=== PATIENT | female | born 1950 | race Caucasian/White ===

== ENCOUNTER → 2018-03-17 10:30 | Outpatient (CLI) | payer MEDICARE, BC, SELFPAY ==
--- NOTE | 2018-03-17 | DI.MG.S_ITS ---
BILATERAL DIGITAL SCREENING MAMMOGRAM 3D/2D WITH CAD: 03/17/2018 CLINICAL: Routine screening. Family history of breast cancer. Comparison is made to exams dated: 02/10/2017 mammogram, 02/20/2015 mammogram, and 11/28/2013 mammogram - [facility]. The tissue of both breasts is extremely dense, which lowers the sensitivity of mammography. Current study was also evaluated with a Computer Aided Detection (CAD) system. There is an oval asymmetry in the left breast posterior depth inner region seen on the craniocaudal view only. No other significant masses, calcifications, or other findings are seen in either breast. IMPRESSION: INCOMPLETE: NEEDS ADDITIONAL IMAGING EVALUATION The oval asymmetry in the left breast is indeterminate. Additional views with possible ultrasound are recommended. This exam was interpreted at Station ID: [id number]. NOTE: For mammograms, a report in lay terms will be sent to the patient. Approximately 15% of breast malignancies will not be visualized mammographically. In the management of a palpable breast mass, a negative mammogram must not discourage biopsy of a clinically suspicious lesion. Electronically Signed By: Rickey hardy/alex:03/20/2018 02:07:06 letter sent: Additional Imaging Needed ACR BI-RADS Category 0: Incomplete 3340F
== END ==
PROVIDERS: PCP Specialist; Visit Provider Nurse Practitioner Family
DX: Z12.31 Encounter for screening mammogram for malignant neoplasm of breast (principal); Z80.3 Family history of malignant neoplasm of breast
CPT/HCPCS: 77063; 77067

== ENCOUNTER → 2018-04-11 10:03 | Outpatient (CLI) | payer MEDICARE, BC, SELFPAY ==
--- NOTE | 2018-04-11 | DI.MG.S_ITS ---
UNILATERAL LEFT DIGITAL DIAGNOSTIC MAMMOGRAM 3D/2D WITH ADDITIONAL VIEWS: 04/11/2018 CLINICAL: Additional evaluation requested from prior study. Comparison is made to exams dated: 03/17/2018 mammogram, 02/10/2017 mammogram, and 02/20/2015 mammogram - [facility]. The tissue of left breast is extremely dense, which lowers the sensitivity of mammography. Previously identified oval asymmetry in the left breast posterior depth inner region seen on the craniocaudal view only on comparison screening mammograms persists with additional views. No other significant masses, calcifications, or other findings are seen in the breast. IMPRESSION: INCOMPLETE: NEEDS ADDITIONAL IMAGING EVALUATION Previously identified oval asymmetry in the left breast posterior depth inner region seen on the craniocaudal view only on comparison screening mammograms persists with additional views. A targeted ultrasound is recommended for further evaluation, and will be performed immediately following this exam. This exam was interpreted at Station ID: [id number]. NOTE: For mammograms, a report in lay terms will be sent to the patient. Approximately 15% of breast malignancies will not be visualized mammographically. In the management of a palpable breast mass, a negative mammogram must not discourage biopsy of a clinically suspicious lesion. Electronically Signed By: Rickey Wolf M.D. ecl/:04/11/2018 11:36:28 letter sent: Additional Imaging Needed ACR BI-RADS Category 0: Incomplete 3340F
--- NOTE | 2018-04-11 | DI.US.S_ITS ---
LIMITED ULTRASOUND OF LEFT BREAST: 04/11/2018 CLINICAL: Patient returns for additional imaging over an asymmetry in the left breast. Comparison is made to exams dated: 04/11/2018 mammogram, 03/17/2018 mammogram, and 02/10/2017 mammogram - [facility]. Real-time and Doppler ultrasound of the left breast 9 o'clock region were performed. Garcia scale images of the real-time examination were reviewed. There is a 0.8 x 0.7 x 0.4 cm oval hypoehoic circumscribed mass in the left breast at 9 o'clock 8 cm from the nipple which demonstrates no vascularity on Doppler ultrasound. There is a possible fatty hilum posteriorly. This appears to correlate with the finding seen on mammography. IMPRESSION: PROBABLY BENIGN 0.8 cm mass in the left breast at 9 o'clock 8 cm from the nipple likely represents an intramammary lymph node or cluster of microcysts and is probably benign. A follow-up diagnostic mammogram and targeted ultrasound in 6 months is recommended to demonstrate stability. The patient is advised to monitor her breasts and to return sooner for re-evaluation should she feel anything grow or change. This exam was interpreted at Station ID: [id number]. Electronically Signed By: Rickey Wolf M.D. ecl/:04/11/2018 11:55:28 copy to: Bharat Wu letter sent: Followup Recommended Ultrasound BI-RADS: 3 Probably benign
== END ==
PROVIDERS: PCP Specialist; Visit Provider Nurse Practitioner Family
DX: R92.8 Other abnormal and inconclusive findings on diagnostic imaging of breast (principal); N63.20 Unspecified lump in the left breast, unspecified quadrant
CPT/HCPCS: 76642; 77065; G0279

== ENCOUNTER → 2019-01-12 13:35 | Outpatient (CLI) | payer MEDICARE, BC, SELFPAY ==
--- NOTE | 2019-01-12 | DI.MG.S_ITS ---
BILATERAL DIGITAL DIAGNOSTIC MAMMOGRAM 3D/2D SHORT-TERM FOLLOW-UP: 01/12/2019 CLINICAL: Patient returns for a 6 month follow up of the left breast. Due for bilateral imaging. Comparison is made to exams dated: 04/11/2018 mammogram, 03/17/2018 mammogram, and 02/10/2017 mammogram - [facility]. The tissue of both breasts is extremely dense, which lowers the sensitivity of mammography. Previously identified oval asymmetry in the left breast posterior depth inner region seen on the craniocaudal view only on comparison mammograms of 04/11/18 and 03/17/18 remains stable. There is a focal asymmetry in the left breast central to the nipple at anterior depth which resolves with additional spot compression views, consistent with superimposed fibroglandular tissues. IMPRESSION: INCOMPLETE: NEEDS ADDITIONAL IMAGING EVALUATION Previously identified oval asymmetry in the left breast posterior depth inner region seen on the craniocaudal view only on comparison mammograms of 04/11/18 and 03/17/18 remains stable. A targeted ultrasound is recommended for further evaluation. This exam was interpreted at Station ID: [id number]. NOTE: For mammograms, a report in lay terms will be sent to the patient. Approximately 15% of breast malignancies will not be visualized mammographically. In the management of a palpable breast mass, a negative mammogram must not discourage biopsy of a clinically suspicious lesion. Electronically Signed By: Rickey Wolf M.D. ecl/:01/12/2019 14:25:19 copy to: Bharat HARDIN BI-RADS Category 0: Incomplete 3340F
--- NOTE | 2019-01-12 | DI.US.S_ITS ---
LIMITED ULTRASOUND OF LEFT BREAST: 01/12/2019 CLINICAL: 6 month follow-up. Comparison is made to exams dated: 01/12/2019 mammogram, 04/11/2018 ultrasound, 04/11/2018 mammogram, 03/17/2018 mammogram, 02/10/2017 mammogram, and 02/20/2015 mammogram - [facility]. Color flow and real-time ultrasound of the left breast 9 o'clock region were performed. Garcia scale images of the real-time examination were reviewed. There is a 0.5 x 0.5 x 0.3 cm oval hypoehoic circumscribed mass in the left breast at 9 o'clock 8 cm from the nipple which demonstrates no vascularity on Doppler ultrasound. There is a possible fatty hilum posteriorly versus internal echogenic debris. This previously measured 0.8 x 0.7 x 0.4 cm on comparison exam of 04/11/18. This appears to correlate with the finding seen on mammography. IMPRESSION: PROBABLY BENIGN Previously identified now 0.5 cm mass in the left breast at 9 o'clock 8 cm from the nipple is stable to slightly decreased in size from prior comparison exam; this likely represents an intramammary lymph node or cluster of microcysts and is probably benign. A follow-up diagnostic mammogram and targeted ultrasound in 6 months is recommended to demonstrate stability. The patient is advised to monitor her breasts and to return sooner for re-evaluation should she feel anything grow or change. This exam was interpreted at Station ID: [id number]. Electronically Signed By: Rickey oWlf M.D. ecl/:01/12/2019 14:47:41 letter sent: Followup Recommended Ultrasound BI-RADS: 3 Probably benign
== END ==
PROVIDERS: PCP Specialist; Visit Provider Nurse Practitioner Family
DX: N63.20 Unspecified lump in the left breast, unspecified quadrant (principal)
CPT/HCPCS: 76642; 77066; G0279

== ENCOUNTER → 2019-01-21 17:44 | Outpatient (CLI) | payer MEDICARE, BC, SELFPAY | PROVIDERS: PCP Specialist; Visit Provider Physician Assistant | DX: N39.0 Urinary tract infection, site not specified (principal); R31.9 Hematuria, unspecified | CPT/HCPCS: 87086 ==

== ENCOUNTER → 2019-04-11 10:10 | Outpatient (CLI) | payer MEDICARE, BC, SELFPAY | PROVIDERS: PCP Specialist; Visit Provider Physician Assistant | DX: R30.0 Dysuria (principal) | CPT/HCPCS: 87086 ==

== ENCOUNTER → 2020-06-29 14:59 | Outpatient (CLI) | payer MEDICARE, BC, SELFPAY ==
--- NOTE | 2020-06-29 | DI.MG.S_ITS ---
BILATERAL DIGITAL SCREENING MAMMOGRAM 3D/2D WITH CAD: 06/29/2020 CLINICAL: Routine screening. Family history of breast cancer. Comparison is made to exams dated: 01/12/2019 mammogram, 03/17/2018 mammogram, 02/10/2017 mammogram, 01/12/2019 ultrasound, 04/11/2018 mammogram, and 02/20/2015 mammogram - [facility]. The tissue of both breasts is extremely dense, which lowers the sensitivity of mammography. Current study was also evaluated with a Computer Aided Detection (CAD) system. There are benign calcifications in the right breast. Asymmetry in the medial left breast seen on CC view posterior depth is no longer seen. No significant masses, calcifications, or other findings are seen in either breast. There has been no significant interval change. IMPRESSION: BENIGN There is no mammographic evidence of malignancy. A 1 year screening mammogram is recommended. This exam was interpreted at Station ID: [id number]. NOTE: For mammograms, a report in lay terms will be sent to the patient. Approximately 15% of breast malignancies will not be visualized mammographically. In the management of a palpable breast mass, a negative mammogram must not discourage biopsy of a clinically suspicious lesion. Electronically Signed By: Alfredo Soler M.D. slc/:07/01/2020 08:33:33 letter sent: Normal Exam ACR BI-RADS Category 2: Benign Finding(s) 3342F
== END ==
PROVIDERS: PCP Student in an Organized Health Care Education/Training Program; Referring Provider Student in an Organized Health Care Education/Training Program; Visit Provider Student in an Organized Health Care Education/Training Program
DX: Z12.31 Encounter for screening mammogram for malignant neoplasm of breast (principal); Z80.3 Family history of malignant neoplasm of breast
CPT/HCPCS: 77063; 77067

== ENCOUNTER → 2021-01-22 13:02 | Outpatient (CLI) | payer MEDICARE, BC, SELFPAY ==
--- NOTE | 2021-01-22 13:04 | DI.RAD.S_ITS ---
PROCEDURE: XR HIP W PEL IF DONE TALIA MIN 4V INDICATIONS: BILATERAL HIP PAIN TECHNIQUE: AP pelvis with lateral view(s) of the bilateral hip(s). COMPARISON: [facility], , HIPBILAT 3TO4V W PEL IF PERFD, 07/14/2016, 12:20. FINDINGS: Bones: No fractures or dislocations. Pelvic ring appears intact. No suspicious bony lesions. Hip joints are well maintained. Degenerative disc and facet disease involves the inferior lumbar spine. Soft tissues: The visualized bowel gas pattern is normal. No suspicious soft tissue calcifications. IMPRESSION: Lower lumbar spine degenerative disc and facet disease; otherwise no radiographic extra may harris for hip pain. Dictated by: Alpesh Perea RR Interpreted: Patrice Rivas MD on 01/22/2021 at 13:39 Transcribed by: ANNITA on 01/22/2021 at 13:40 Approved by: Patrice Rivas M.D. on 01/22/2021 at 15:34
== END ==
PROVIDERS: PCP Student in an Organized Health Care Education/Training Program; Referring Provider Physical Medicine & Rehabilitation; Visit Provider Physical Medicine & Rehabilitation
DX: M25.551 Pain in right hip (principal); M25.552 Pain in left hip; M51.36 Other intervertebral disc degeneration, lumbar region
CPT/HCPCS: 73522

== ENCOUNTER → 2021-05-01 14:21 | Outpatient (CLI) | payer MEDICARE, BC, SELFPAY ==
--- NOTE | 2021-05-01 14:23 | DI.US.S_ITS ---
PROCEDURE: US RENAL COMPLETE INDICATIONS: CHRONIC UTI TECHNIQUE: Real-time scanning was performed of the kidneys and bladder, with image documentation. COMPARISON: [facility], US, RENAL COMPLETE, 09/11/2015, 10:23. FINDINGS: Kidneys: Kidneys are normal in size. Right kidney measures 10.7 cm long; left kidney measures 10.8 cm long. Right renal cortical thickness is 1.4 cm; left renal cortical thickness is 1.7 cm. Renal cortical echotexture is normal. No hydronephrosis or nephrolithiasis. No suspicious solid mass lesions. Bladder: Pre-void bladder volume is 32 mL. Post-void residual is 0 mL. Pre-void images demonstrate no intraluminal masses or stones. On pre-void images, no ureteral jets are noted with color Doppler interrogation. (Of note, ureteral jets may not be detectable in up to 25% of cases due to insufficient differences in specific gravity between ureteral and bladder urine). Miscellaneous: No free pelvic fluid. IMPRESSION: No gross abnormality is seen in bilateral kidneys and partially distended urinary bladder. Dictated by: Patrice Rivas M.D. on 05/01/2021 at 15:33 Approved by: Patrice Rivas M.D. on 05/01/2021 at 15:55
== END ==
PROVIDERS: PCP Student in an Organized Health Care Education/Training Program; Referring Provider Student in an Organized Health Care Education/Training Program; Visit Provider Student in an Organized Health Care Education/Training Program
DX: N39.0 Urinary tract infection, site not specified (principal); R10.9 Unspecified abdominal pain
CPT/HCPCS: 76770

== ENCOUNTER → 2021-10-14 15:22 | Outpatient (CLI) | payer MEDICARE, BC, SELFPAY ==
--- NOTE | 2021-10-14 15:26 | DI.MG.S_ITS ---
BILATERAL DIGITAL SCREENING MAMMOGRAM 3D/2D WITH CAD: 10/14/2021 CLINICAL: Routine screening. Family history of breast cancer. Comparison is made to exams dated: 06/29/2020 mammogram, 01/12/2019 mammogram, 03/17/2018 mammogram, and 02/10/2017 mammogram - [facility]. The tissue of both breasts is extremely dense, which lowers the sensitivity of mammography. Current study was also evaluated with a Computer Aided Detection (CAD) system. No significant masses, calcifications, or other findings are seen in either breast. There has been no significant interval change. IMPRESSION: NEGATIVE There is no mammographic evidence of malignancy. A 1 year screening mammogram is recommended. This exam was interpreted at Station ID: [id number]. NOTE: For mammograms, a report in lay terms will be sent to the patient. Approximately 15% of breast malignancies will not be visualized mammographically. In the management of a palpable breast mass, a negative mammogram must not discourage biopsy of a clinically suspicious lesion. Electronically Signed By: Alfredo chavez/alex:10/15/2021 08:03:19 letter sent: Normal Exam ACR BI-RADS Category 1: Negative 3341F
--- NOTE | 2021-10-14 15:27 | DI.MRI.S_ITS ---
PROCEDURE: MR HEAD/BRAIN WO CON INDICATIONS: Postconcussional syndrome TECHNIQUE: Noncontrast axial T1 spin echo, axial T2 fast spin echo, sagittal and axial FLAIR, coronal T2 fast spin echo, axial gradient echo, axial diffusion and ADC through the brain. COMPARISON: None. FINDINGS: Image quality: Excellent. CSF Spaces: Basal cisterns are patent. No extra-axial fluid collections. Ventricles are normal in size and shape. Brain: No intracranial masses or hemorrhage. Garcia/white matter interface is normal. Brainstem appears normal. Diffusion-weighted images demonstrate no acute infarct. Moderate atrophy and multifocal white matter chronic ischemic change present.. Normal intravascular flow voids are present. Skull and face: Calvarium has normal marrow signal. Orbits appear normal. Bilateral intraocular lens replacements noted. Sinuses: Sinuses and mastoids are clear. IMPRESSION: Atrophy and chronic ischemic change without acute hemorrhage, infarct or mass lesion Approved by: Ethan Fernandez M.D. on 10/14/2021 at 16:28
== END ==
PROVIDERS: PCP Student in an Organized Health Care Education/Training Program; Referring Provider Student in an Organized Health Care Education/Training Program; Visit Provider Student in an Organized Health Care Education/Training Program
DX: Z12.31 Encounter for screening mammogram for malignant neoplasm of breast (principal); Z80.3 Family history of malignant neoplasm of breast; F07.81 Postconcussional syndrome
CPT/HCPCS: 70551; 77063; 77067

== ENCOUNTER → 2022-04-27 15:34 | Outpatient (CLI) | payer MEDICARE, BC, SELFPAY ==
--- NOTE | 2022-04-27 15:38 | DI.RAD.S_ITS ---
PROCEDURE: XR FOOT RT MIN 3V INDICATIONS: RIGHT 5T TOE FRACTURE 02/12, STILL SWOLLEN TECHNIQUE: 3 views of the foot were acquired. COMPARISON: None. FINDINGS: Bones: There is a fracture fragment at the 5th distal interphalangeal joint with mild displacement. No suspicious bony lesions. Metatarsus adductus and hallux valgus. Mild degenerative joint disease at the 1st tarsometatarsal joint, 1st metatarsophalangeal joint and multiple interphalangeal joints. Bipartite medial sesamoid. Soft tissues: No tibiotalar joint effusion. Achilles tendon appears normal. Soft tissue swelling of the 5th toe. IMPRESSION: 1. There is a fracture fragment at the 5th distal interphalangeal joint with mild displacement and associated soft tissue swelling. Dictated by: Jose Cleary M.D. on 04/28/2022 at 16:36 Approved by: Jose Cleary M.D. on 04/28/2022 at 16:43
== END ==
PROVIDERS: PCP Family Medicine; Referring Provider Internal Medicine; Visit Provider Internal Medicine
DX: S92.531A Displaced fracture of distal phalanx of right lesser toe(s), initial encounter for closed fracture (principal); M79.89 Other specified soft tissue disorders; X58.XXXA Exposure to other specified factors, initial encounter
CPT/HCPCS: 73630

== ENCOUNTER → 2023-02-09 16:23 | Outpatient (CLI) | payer MEDICARE, BC, SELFPAY ==
--- NOTE | 2023-02-09 | DI.MG.S_ITS ---
BILATERAL DIGITAL SCREENING MAMMOGRAM 3D/2D WITH CAD: 02/09/2023 CLINICAL: Routine screening. Family history of breast cancer. Comparison is made to exams dated: 10/14/2021 mammogram, 06/29/2020 mammogram, and 03/17/2018 mammogram - [facility]. Both breasts are extremely dense, which lowers the sensitivity of mammography (category d />75% glandular tissue). Current study was also evaluated with a Computer Aided Detection (CAD) system. There is an asymmetry in the left breast sub-areolar depth central to the nipple seen on the craniocaudal view only. This is more prominent. No other significant masses, calcifications, or other findings are seen in either breast. IMPRESSION: INCOMPLETE: NEEDS ADDITIONAL IMAGING EVALUATION The asymmetry in the left breast is indeterminate. Additional views with possible ultrasound are recommended. Based on the Tyrer Cuzick model (a risk assessment model) the patient's lifetime risk is 18.5% and her 10 year risk is 16.8%. According to the ACR, ACS, and NCCN guidelines, an annual breast MRI exam along with mammogram is recommended if the patient's lifetime risk is 20% or greater. This exam was interpreted at Station ID: [id number]. NOTE: For mammograms, a report in lay terms will be sent to the patient. Approximately 15% of breast malignancies will not be visualized mammographically. In the management of a palpable breast mass, a negative mammogram must not discourage biopsy of a clinically suspicious lesion. Electronically Signed By: Rylan Macias M.D. lc/:02/10/2023 08:07:04 letter sent: Additional Imaging Needed ACR BI-RADS Category 0: Incomplete 3340F
== END ==
PROVIDERS: PCP Family Medicine; Referring Provider Registered Nurse; Visit Provider Registered Nurse
DX: Z12.31 Encounter for screening mammogram for malignant neoplasm of breast (principal); Z80.3 Family history of malignant neoplasm of breast
CPT/HCPCS: 77063; 77067

== ENCOUNTER → 2023-02-18 08:34 | Outpatient (CLI) | payer MEDICARE, BC, SELFPAY ==
--- NOTE | 2023-02-18 | DI.US.S_ITS ---
LIMITED ULTRASOUND OF LEFT BREAST: 02/18/2023 CLINICAL: Patient returns today to evaluate an asymmetry in the left breast. Comparison is made to exams dated: 02/18/2023 mammogram, 10/14/2021 mammogram, 02/09/2023 mammogram, 06/29/2020 mammogram, 01/12/2019 ultrasound, and 01/12/2019 mammogram - [facility]. Color flow and real-time ultrasound of the left breast retroareolar were performed. Garcia scale images of the real-time examination were reviewed. No mass or cyst. Small retroareolar ducts. No intraductal mass. IMPRESSION: BENIGN There is no sonographic evidence of malignancy. Retroareolar ducts are benign. Exam findings were conveyed to the patient. A 1 year screening mammogram is recommended. This exam was interpreted at Station ID: [id number]. Electronically Signed By: Alfredo Soler M.D. slc/:02/18/2023 09:21:02 letter sent: Normal Exam Ultrasound BI-RADS: 2 Benign
--- NOTE | 2023-02-18 | DI.MG.S_ITS ---
UNILATERAL LEFT DIGITAL DIAGNOSTIC MAMMOGRAM 3D/2D WITH ADDITIONAL VIEWS: 02/18/2023 CLINICAL: Additional evaluation requested from prior study. Comparison is made to exams dated: 02/09/2023 mammogram, 10/14/2021 mammogram, 06/29/2020 mammogram, and 01/12/2019 [facility]. The left breast is extremely dense, which lowers the sensitivity of mammography (category d />75% glandular tissue). There is an asymmetry in the left breast sub-areolar depth central to the nipple seen on the craniocaudal view only. This is less prominent. No other significant masses or calcifications are seen in the breast. IMPRESSION: INCOMPLETE: NEEDS ADDITIONAL IMAGING EVALUATION The asymmetry in the left breast is indeterminate. A targeted ultrasound is recommended and will immediately follow. Based on the Tyrer Cuzick model (a risk assessment model) the patient's lifetime risk is 18.5% and her 10 year risk is 16.8%. According to the ACR, ACS, and NCCN guidelines, an annual breast MRI exam along with mammogram is recommended if the patient's lifetime risk is 20% or greater. This exam was interpreted at Station ID: [id number]. NOTE: For mammograms, a report in lay terms will be sent to the patient. Approximately 15% of breast malignancies will not be visualized mammographically. In the management of a palpable breast mass, a negative mammogram must not discourage biopsy of a clinically suspicious lesion. Electronically Signed By: Alfredo Soler M.D. slc/:02/18/2023 09:17:37 ACR BI-RADS Category 0: Incomplete 3340F
== END ==
PROVIDERS: PCP Registered Nurse; Referring Provider Registered Nurse; Visit Provider Registered Nurse
DX: N63.42 Unspecified lump in left breast, subareolar (principal); R92.8 Other abnormal and inconclusive findings on diagnostic imaging of breast
CPT/HCPCS: 76642; 77065; G0279

== ENCOUNTER → 2023-02-19 09:24 | Outpatient (CLI) | payer MEDICARE, BC, SELFPAY ==
--- NOTE | 2023-02-19 | DI.RAD.S_ITS ---
Bone Density Report Name: MEGHAN BREWSTER Age: 72 Sex: Female Ethnicity: White Date of : 1950 Indication: postmenopausal; screening for osteoporosis; Referring Provider: PATTY KENNEDY Study: Bone densitometry was performed. Exam Date: February 19, 2023 Accession number: [id number] Bone Density: Region BMD T-score Z-score Classification AP Spine(L1-L4) 1.119 0.7 3.0 Normal Femoral Neck (Left) 0.660 -1.7 0.3 Osteopenia Total Hip (Left) 0.840 -0.8 0.9 Normal Femoral Neck (Right) 0.703 -1.3 0.7 Osteopenia Total Hip (Right) 0.817 -1.0 0.7 Normal Total Hip Mean 0.828 -0.9 0.8 Normal World Health Organization criteria for BMD impression classify patients as: Normal (T-score at or above -1.0), Osteopenia (T-score between -1.0 and -2.5), or Osteoporosis (T-score at or below -2.5). 10-year Fracture Risk(1): Major Osteoporotic Fracture 12% Hip Fracture 2.5% Reported Risk Factors: [place] (), Neck BMD=0.660, BMI=25.0 (1) FRAX(R) Version 3.08. Fracture probability calculated for an untreated patient. Fracture probability may be lower if the patient has received treatment. Previous Exams: -- Region Exam Age BMD T-score BMD Change BMD Change Date g/cm2 vs Baseline vs Previous -- AP Spine (L1-L4) 02/19/2023 72 1.119 0.7 -0.134 (-10.7%)# -0.134 (-10.7%)# 02/10/2017 66 1.253 1.9 Total Hip(Left) 02/19/2023 72 0.840 -0.8 -0.055 (-6.1%)# -0.055 (-6.1%)# 02/10/2017 66 0.895 -0.4 Total Hip(Right) 02/19/2023 72 0.817 -1.0 -0.075 (-8.4%)# -0.075 (-8.4%)# 02/10/2017 66 0.892 -0.4 -- *Denotes significance at 95% confidence level, LSC for AP Spine = 0.022 g/cm2, LSC for Total Hip = 0.027 g/cm2 # Denotes dissimilar scan types or analysis methods Impression: The patient has low bone mass, based on the Left Femoral Neck T-score. The patient has an estimated ten-year risk of hip fracture of 2.5% and an estimated ten-year risk of major fracture of 12%, based on the WHO FRAX algorithm. No significant bone loss was observed. Discussion: BONE DENSITY IS LOW AT ONE OR MORE SKELETAL SITES. This patient's lowest T-score is low at one or more skeletal sites. It meets the World Health Organization's (WHO) criteria for low bone mass (T-score between -1.0 and -2.5). The patient's 10-year risk of fracture as calculated by FRAX is less than the threshold where pharmacological therapy is recommended by the National Osteoporosis Foundation (NOF). However, all treatment decisions require clinical judgment and consideration of individual patient factors, including patient preferences, comorbidities, previous drug use, risk factors not captured in the FRAX model (e.g., frailty, falls, vitamin D deficiency, increased bone turnover, interval significant decline in bone density) and possible under or overestimation of fracture risk by FRAX. The patient should follow a healthful lifestyle (good nutrition with adequate calcium and vitamin D, and appropriate weight-bearing exercise). Follow-Up: Consider repeating this study in 2 to 3 years to reassess this patient's status, or sooner if there is some new clinical indication. Reported by: RUBIO METZGER M.D. on 02/19/2023 9:55:00 AM.
== END ==
PROVIDERS: PCP Registered Nurse; Referring Provider Registered Nurse; Visit Provider Registered Nurse
DX: Z78.0 Asymptomatic menopausal state (principal); M85.852 Other specified disorders of bone density and structure, left thigh; Z90.710 Acquired absence of both cervix and uterus
CPT/HCPCS: 77080

== ENCOUNTER 2023-09-30 07:09 | Day surgery (SDC) | payer MEDICARE, BC, SELFPAY ==
--- NOTE | 2023-09-30 | PATH_ITS ---
[facility] Accession Number: [id number] No. of containers..07 Tissue . 01 Material submitted: . PART A: duodenum - DUODENUM PART B: gastrointestinal site - ANTRUM PART C: esophagus, E-G Junction - GE JUNCTION PART D: duodenum bulb - DUODENUM BULB PART E: gastrointestinal site - GASTRIC BODY PART F: colon - CECAL POLYP PART G: colon - SIGMOID COLON . 01 Diagnosis: A. DUODENUM, BIOPSY: Duodenal mucosa with no diagnostic abnormality. Negative for active inflammation, features of sprue, dysplasia, or malignancy. . B. STOMACH, ANTRUM, BIOPSY: Antral mucosa with mild chronic gastritis. Negative for Helicobacter by immunohistochemistry. Negative for intestinal metaplasia. Negative for dysplasia and malignancy. . C. GASTROESOPHAGEAL JUNCTION, BIOPSY: Ulcerated squamous mucosa. Negative for fungal organisms on PAS stain. Intraepithelial eosinophils are not increased. Negative for dysplasia and malignancy. . D. DUODENUM, BULB, BIOPSY: Gastric heterotopia. Negative for intraepithelial lymphocytosis. Negative for dysplasia and malignancy. . E. STOMACH, BODY, BIOPSY: Body-type mucosa with mild chronic gastritis. Negative for Helicobacter by immunohistochemistry. Negative for intestinal metaplasia. Negative for dysplasia and malignancy. . F. CECUM, POLYP: Tubular adenoma. . G. SIGMOID COLON, BIOPSY: Colonic mucosa with focal minimal neutrophilic activity. Negative for granulomas, dysplasia, and malignancy. [facility] 10/05/2023 [facility] Local . 01 Comment: G. The sigmoid colon biopsies show focal minimal neutrophilic cryptitis without features of chronic or microscopic colitis. No obvious viral cytopathic effects or parasitic organisms are identified. The differential diagnosis includes infection, medication-related mucosal injury, diverticular disease-associated colitis/trauma/prolapse, and idiopathic inflammatory bowel disease. . 01 Electronically signed: . Sarai Monterroso MD, Pathologist NPI- [id number] . 01 Gross description: . A. Received in formalin, labeled with the patient's name, , and duodenum biopsy, consists of a single fragment of pink-vargas soft tissue measuring 0.4 cm in greatest dimension. The tissue is entirely submitted in cassette A1. B. Received in formalin, labeled with the patient's name, , and antrum biopsy consists of four fragments of vargas soft tissue ranging from 0.1 to 0.5 cm in greatest dimension. The tissue is entirely submitted in cassette B1. C. Received in formalin, labeled with the patient's name, , and GE junction, consists of four fragments of pink-vargas soft tissue ranging from 0.1 to 0.5 cm in greatest dimension. The tissue is entirely submitted in cassette C1. D. Received in formalin, labeled with the patient's name, , and duodenum bulb biopsy, consists of three fragments of pink-vargas soft tissue ranging from 0.2 to 0.4 cm in greatest dimension. The tissue is entirely submitted in cassette D1. E. Received in formalin, labeled with the patient's name, , and gastric body biopsy, consists of two fragments of pink-vargas soft tissue measuring 0.3 and 0.4 cm in greatest dimension. The tissue is entirely submitted in cassette E1. F. Received in formalin, labeled with the patient's name, , and cecal polyp, consists of a single fragment of pink-vargas soft tissue measuring 1.2 x 0.7 x 0.1 cm. The tissue is inked blue and trisected. The specimen is entirely submitted in cassette F1. G. Received in formalin, labeled with the patient's name, , and sigmoid colon, consists of four fragments of pink-vargas soft tissue ranging from 0.2 to 0.3 cm in greatest dimension. The tissue is entirely submitted in cassette G1. ([id number]) /MRV 10/01/2023 [facility] . 01 Microscopic: . B. An immunohistochemical stain was performed to evaluate for Helicobacter organisms and is negative. The control stain showed appropriate reactivity. . C. An AB/PAS stain is performed to evaluate for fungal organisms and is negative. The control stain showed appropriate reactivity. . E. An immunohistochemical stain was performed to evaluate for Helicobacter organisms and is negative. The control stain showed appropriate reactivity. . * This test was developed and its performance characteristics determined by [employer]. It has not been cleared or approved by the U.S. Food and Drug Administration. The FDA has determined that such clearance or approval is not necessary. This test is used for clinical purposes. It should not be regarded as investigational or for research. . 01 Pathologist provided ICD-10: R13.10, D12.0 . 01 CPT . 593377, 626936, 460258, 547943, 924971, 644770, 624918, [id number], 798413 Specimen Comment: A courtesy copy of this report has been sent to [phone] Performed at: 01 [facility] Cytology [address] [facility], [place], [place] [id number] MD Fred Evans MD Phone: [phone]
[2023-09-30 07:25] VITALS: BP 140/84; PULSE 89; RESP 17; TEMP 36.9; O2SAT 100
[2023-09-30] MEDS: LACTATED RINGERS 1,000 ML 42 ML IV (07:34)
--- NOTE | 2023-09-30 07:38 | PM.HP.1 ---
History of Present Illness History of Present Illness Date Patient Seen: 09/30/23 Time Patient Seen: 07:38 Chief complaint: SDC Narrative: Syeda is a 72-year-old woman who presents for dysphagia and colon cancer screening. See office note from May for details. PFSH Medical History (Updated 06/02/23 @ 15:41 by Hay Rao MD) Hyperlipemia Surgical History (Updated 06/02/23 @ 15:26 by Leo Mack, RN) Hx of section Hx of hernia repair Hx of hysterectomy Family History (Updated 06/02/23 @ 15:27 by Leo Mack, ZULEYKA) Father Hypertension Mother Cancer Social History Smoking Status: Never smoker Meds Home Medications and Allergies Home Medications Medication Instructions Recorded Confirmed Type atorvastatin 40 mg tablet 40 mg PO QPM 90 days #90 tabs 07/22/21 09/30/23 History cholecalciferol (vitamin D3) 50 50 mcg PO DAILY 07/22/21 09/30/23 History mcg (2,000 unit) chewable tablet Allergies Allergy/AdvReac Type Severity Reaction Status Date / Time lithium AdvReac Severe suicidal Verified 09/30/23 07:23 ideation Exam Vital Signs (past 8 hours): - 09/30/23 07:25 Temperature 98.4 F Pulse Rate 89 Respiratory Rate 17 Blood Pressure 140/84 Pulse Oximetry 100 Oxygen Delivery Method Room Air Oxygen Delivery Method Room Air Const General: No acute distress Resp Effort & Inspection: normal respiratory effort Assessment & Plan Assessment and plan (1) Colon cancer screening: Status: Acute (2) Dysphagia: Qualifiers: Dysphagia type: esophageal phase Qualified Code(s): R13.19 - Other dysphagia Status: Acute Plan We reviewed the risks and benefits of EGD for dysphagia and colonoscopy for colon cancer screening and she would like to proceed.
[2023-09-30 08:26] VITALS: BP 88/56; PULSE 65; RESP 14; TEMP 36.6; O2SAT 98
--- NOTE | 2023-09-30 08:26 | PM.OP.EC ---
Operative Date/Time/Diagnoses Date of procedure: 09/30/23 Time of procedure: 08:27 Pre-op diagnosis: Dysphagia and colon cancer screening Post-op diagnosis: same Procedure & Clinicians Study performed: EGD and colonoscopy Same procedure as scheduled: Yes Surgeon: Hay Rao Procedure Notes Procedure in detail: Surgeon: Hay Rao MD Anesthesia: James Alfredo Procedure in detail: A timeout was performed. A bite blocked was placed and monitors were attached to the patient. The patient was positioned in the left lateral decubitus position. Sedation was administered. Once the patient was sedated the endoscope was inserted through the bite block and passed through the esophagus and stomach and into the duodenum. No gross abnormalities were seen in the descending duodenum. Random biopsies were taken from the duodenum with cold forceps. There was some inflamed hypertrophic mucosa in the duodenal bulb and random biopsies were taken with cold forceps. We then withdrew the scope into the stomach. There was antritis and diffuse gastritis in the stomach. Random biopsies were taken of the antrum and stomach body with cold forceps. The endoscope was retroflexed and a hiatal hernia was noted. The endoscope was straightned and withdrawn into the esophagus. The hiatal hernia measured approximately 4 cm. There were salmon-colored patches of mucosa extending proximally from the GE junction greater than 2 cm. Biopsies were taken of the salmon-colored mucosa with cold forceps. No stricture was noted. EGD findings: Duodenitis, antritis, gastritis and salmon-colored patches of mucosa extending proximally from the GE junction. Next we repositioned the patient for a colonoscopy. A digital rectal exam was performed and was normal. The colonoscope was inserted and advanced to the cecum. The appendiceal orifice was identified and photographed. The scope was slowly withdrawn over greater than 6 minutes. There was a 5 mm polyp in the cecum removed with a cold snare. There was some mildly inflamed mucosa versus small, shallow ulcerations in the sigmoid colon and random biopsies were taken from the sigmoid mucosa with cold forceps. The scope was retroflexed in the rectum and internal hemorrhoids were noted. Colonoscopy findings: 5 mm cecal polyp, inflamed sigmoid colon mucosa an internal hemorrhoids Total procedural EBL: 10 mL Scope withdrawal time: 9 minutes Sedation minutes: 35 minutes Post-procedure Disposition: PACU
[2023-09-30 08:31] VITALS: BP 90/56; PULSE 68; RESP 14; O2SAT 97
[2023-09-30 08:36] VITALS: BP 104/56; PULSE 64; RESP 13; O2SAT 99
[2023-09-30 08:41] VITALS: BP 108/77; PULSE 71; RESP 16; O2SAT 98
== END 2023-09-30 08:55 | disposition home or self-care (01) ==
PROVIDERS: PCP Registered Nurse; Referring Provider Surgery; Visit Provider Surgery
PROC: 0DJ08ZZ Inspection of Upper Intestinal Tract, Via Natural or Artificial Opening Endoscopic (ICD-10-PCS; CPT 43235; principal; 2023-09-30 07:45)
PROC: 0DJD8ZZ Inspection of Lower Intestinal Tract, Via Natural or Artificial Opening Endoscopic (ICD-10-PCS; CPT 45378; 2023-09-30 07:45)
DX: Z12.11 Encounter for screening for malignant neoplasm of colon (principal); R13.10 Dysphagia, unspecified; K29.50 Unspecified chronic gastritis without bleeding; K44.9 Diaphragmatic hernia without obstruction or gangrene; K29.80 Duodenitis without bleeding; K64.8 Other hemorrhoids; D12.0 Benign neoplasm of cecum
CPT/HCPCS: 45385; 45380; 43239; J2704

== ENCOUNTER → 2024-02-03 12:24 | Outpatient (CLI) | payer MEDICARE, BC, SELFPAY | LOC: PHYS 12:25 | PROVIDERS: Family Provider Registered Nurse; PCP Registered Nurse; Referring Provider Registered Nurse; Visit Provider Registered Nurse | DX: R20.0 Anesthesia of skin (principal); R20.2 Paresthesia of skin | CPT/HCPCS: 95886; 95910 ==

== ENCOUNTER → 2024-03-09 09:20 | Outpatient (CLI) | payer MEDICARE, BC, SELFPAY ==
--- NOTE | 2024-03-09 | DI.MG.S_ITS ---
BILATERAL DIGITAL SCREENING MAMMOGRAM 3D/2D WITH CAD: 03/09/2024 CLINICAL: Routine screening. Family history of breast cancer. Comparison is made to exams dated: 02/09/2023 mammogram, 10/14/2021 mammogram, and 06/29/2020 mammogram - . The breasts are extremely dense, which lowers the sensitivity of mammography (category d />75% glandular tissue). Current study was also evaluated with a Computer Aided Detection (CAD) system. There is an oval focal asymmetry in the right breast at 10 o'clock middle depth. This is more prominent and increased in size. No other significant masses, calcifications, or other findings are seen in either breast. IMPRESSION: INCOMPLETE: NEED ADDITIONAL IMAGING EVALUATION The oval focal asymmetry in the right breast is indeterminate. Additional views with possible ultrasound are recommended. Based on the Tyrer Cuzick model (a risk assessment model) the patient's lifetime risk is 17.2% and her 10 year risk is 17.2%. According to the ACR, ACS, and NCCN guidelines, an annual breast MRI exam along with mammogram is recommended if the patient's lifetime risk is 20% or greater. This exam was interpreted at Station ID: [id number]. NOTE: For mammograms, a report in lay terms will be sent to the patient. Approximately 15% of breast malignancies will not be visualized mammographically. In the management of a palpable breast mass, a negative mammogram must not discourage biopsy of a clinically suspicious lesion. Electronically Signed By: Bulmaro Quevedo M.D. aty/:03/10/2024 20:44:10 letter sent: Additional Imaging Needed ACR BI-RADS Category 0: Incomplete: Need Additional Imaging Evaluation
== END ==
PROVIDERS: Family Provider Registered Nurse; PCP Registered Nurse; Referring Provider Registered Nurse; Visit Provider Registered Nurse
DX: Z12.31 Encounter for screening mammogram for malignant neoplasm of breast (principal); Z80.3 Family history of malignant neoplasm of breast; R92.343 Mammographic extreme density, bilateral breasts
CPT/HCPCS: 77063; 77067

== ENCOUNTER → 2024-03-20 08:28 | Outpatient (CLI) | payer MEDICARE, BC, SELFPAY ==
--- NOTE | 2024-03-20 08:29 | DI.MG.S_ITS ---
UNILATERAL RIGHT DIGITAL DIAGNOSTIC MAMMOGRAM 3D/2D WITH ADDITIONAL VIEWS: 03/20/2024 CLINICAL: Additional evaluation requested from prior study. Comparison is made to exams dated: 03/09/2024 mammogram, 02/09/2023 mammogram, and 10/14/2021 mammogram - [facility]. The breasts are extremely dense, which lowers the sensitivity of mammography (category d />75% glandular tissue). There is a 0.8 cm oval focal asymmetry in the right breast at 10 o'clock middle depth. This is seen in additional views. No other significant masses or calcifications are seen in the breast. IMPRESSION: INCOMPLETE: NEED ADDITIONAL IMAGING EVALUATION The 0.8 cm oval focal asymmetry in the right breast is indeterminate. An ultrasound is recommended. Based on the Tyrer Cuzick model (a risk assessment model) the patient's lifetime risk is 17.2% and her 10 year risk is 17.2%. According to the ACR, ACS, and NCCN guidelines, an annual breast MRI exam along with mammogram is recommended if the patient's lifetime risk is 20% or greater. This exam was interpreted at Station ID: [id number]. NOTE: For mammograms, a report in lay terms will be sent to the patient. Approximately 15% of breast malignancies will not be visualized mammographically. In the management of a palpable breast mass, a negative mammogram must not discourage biopsy of a clinically suspicious lesion. Electronically Signed By: Rylan franco/alex:03/20/2024 09:31:42 letter sent: Additional Imaging Needed ACR BI-RADS Category 0: Incomplete: Need Additional Imaging Evaluation
--- NOTE | 2024-03-20 08:30 | DI.US.S_ITS ---
LIMITED ULTRASOUND OF RIGHT BREAST: 03/20/2024 CLINICAL: Patient returns today to evaluate a focal asymmetry in the right breast. Comparison is made to exams dated: 03/20/2024 mammogram, 03/09/2024 mammogram, 02/18/2023 ultrasound, 02/18/2023 mammogram, 02/09/2023 mammogram, and 10/14/2021 mammogram - [facility]. Color flow and real-time ultrasound of the right breast 10 o'clock region were performed. Garcia scale images of the real-time examination were reviewed. There is a benign 0.7 cm x 0.7 cm x 0.8 cm cyst in the right breast at 10 o'clock middle depth 8 cm from the nipple. This correlates with mammography findings. IMPRESSION: BENIGN There is no sonographic evidence of malignancy. The 0.7 cm x 0.7 cm x 0.8 cm cyst in the right breast is benign. Return to annual mammogram screening schedule is recommended. This exam was interpreted at Station ID: [id number]. Electronically Signed By: Rylan Macias M.D. lc/:03/20/2024 09:32:26 letter sent: Normal Exam ACR BI-RADS Category 2: Benign
== END ==
PROVIDERS: Family Provider Registered Nurse; PCP Registered Nurse; Referring Provider Registered Nurse; Visit Provider Registered Nurse
DX: R92.8 Other abnormal and inconclusive findings on diagnostic imaging of breast (principal); R92.343 Mammographic extreme density, bilateral breasts; N60.01 Solitary cyst of right breast
CPT/HCPCS: 76642; 77065; G0279

== ENCOUNTER → 2024-05-12 12:22 | Outpatient (CLI) | payer MEDICARE, BC, SELFPAY ==
--- NOTE | 2024-05-12 12:27 | DI.RAD.S_ITS ---
PROCEDURE: XR LUMBAR SPINE MIN 4V INDICATIONS: NUMBNESS IN RT LEG TECHNIQUE: 5 views of the lumbar spine were acquired, including bilateral oblique views. COMPARISON: None. FINDINGS: Bones: 5 nonrib-bearing vertebrae are present. Facet osteoarthritic changes L4-L5 and L5-S1 bilaterally. Disc space narrowing L2-L3 with endplate osteophyte formation and to a lesser degree L1-L2. There is normal bony alignment. No vertebral body compression fractures. No suspicious bony lesions. Soft tissues: Overlying bowel gas pattern is normal. No suspicious soft tissue calcifications. Oblique images: No pars defects. IMPRESSION: No acute bony abnormality. Lumbar spondylotic degenerative changes as above. Dictated by: Victor M Zhao M.D. on 05/12/2024 at 13:25 Approved by: Victor M Zhao M.D. on 05/12/2024 at 13:26
== END ==
PROVIDERS: Family Provider Registered Nurse; PCP Registered Nurse; Referring Provider Registered Nurse; Visit Provider Registered Nurse
DX: M47.817 Spondylosis without myelopathy or radiculopathy, lumbosacral region (principal); M54.10 Radiculopathy, site unspecified; M25.561 Pain in right knee; M47.816 Spondylosis without myelopathy or radiculopathy, lumbar region; R20.0 Anesthesia of skin; R20.2 Paresthesia of skin
CPT/HCPCS: 72110

== ENCOUNTER → 2024-05-15 11:31 | Outpatient (CLI) | payer MEDICARE, BC, SELFPAY ==
--- NOTE | 2024-05-15 11:32 | DI.MRI.S_ITS ---
PROCEDURE: MR LUMBAR SPINE WO CON INDICATIONS: LUMBAR PAIN R>L RADICULAR PAIN TECHNIQUE: Noncontrast sagittal T1 spin echo and T2 fast echo, sagittal STIR, and T2 fast spin echo through the lumbar spine. In cases with scoliosis, additional coronal T2 fast spin echo may be performed. COMPARISON: None. FINDINGS: Image quality: Excellent. Alignment and Curvature: Mild anterolisthesis of L4 on L5. Otherwise, alignment is normal. Bone Marrow: Degenerative endplate changes at L2-L3. Marrow is of normal overall signal. No acute vertebral body compression fractures. Spinal Cord: Conus medullaris terminates at the L1 level. Visualized cord demonstrates normal signal and size. Paraspinous Soft Tissues: No paravertebral masses. T12-L1: Normal appearance. L1-L2: Mild disc desiccation height loss. Minimal disc bulge. Facet arthropathy. No central canal or neural foraminal stenosis. L2-L3: Disc desiccation and moderate height loss. Mild disc bulge. Facet arthropathy. No significant central canal or neural foraminal stenosis. L3-L4: Mild disc bulge. Disc desiccation. Facet arthropathy and thickening of the ligamentum flavum. Mild central canal stenosis. No neural foraminal stenosis. L4-L5: Disc desiccation and mild disc bulge. Facet arthropathy and thickening of ligamentum flavum. Moderate to severe central canal stenosis with narrowing of the lateral recesses, greater on the left. No significant neural foraminal stenosis. L5-S1: Disc desiccation. Facet arthropathy. No central canal or neural foraminal stenosis. IMPRESSION: 1. Multilevel degenerative changes of the lumbar spine as described above. 2. Moderate to severe central canal stenosis L4-5 with narrowing of the left greater than right lateral recesses. Possible impingement of the descending left L5 nerve root. 3. No significant neural foraminal stenosis. Dictated by: Yvon Taylor M.D. on 05/15/2024 at 16:02 Approved by: Yvon Taylor M.D. on 05/15/2024 at 16:05
== END ==
PROVIDERS: Family Provider Registered Nurse; PCP Registered Nurse; Referring Provider Registered Nurse; Visit Provider Registered Nurse
DX: M48.061 Spinal stenosis, lumbar region without neurogenic claudication (principal); M47.816 Spondylosis without myelopathy or radiculopathy, lumbar region; M47.817 Spondylosis without myelopathy or radiculopathy, lumbosacral region; M54.10 Radiculopathy, site unspecified; R20.0 Anesthesia of skin; R20.2 Paresthesia of skin; M25.561 Pain in right knee
CPT/HCPCS: 72148

== ENCOUNTER → 2024-07-11 16:43 | Outpatient (CLI) | payer MEDICARE, BC, SELFPAY ==
--- NOTE | 2024-07-11 16:46 | DI.RAD.S_ITS ---
PROCEDURE: XR CHEST 2V INDICATIONS: PNEUMONIA TECHNIQUE: 2 views of the chest were acquired. COMPARISON: None. FINDINGS: Heart, mediastinum and pulmonary vascular: Heart is normal in size and configuration. Mediastinum is unremarkable. Pulmonary vascular is normal. Lungs: Clear Pleural spaces: Normal-no effusions or pneumothorax. Bones and soft tissues: Normal IMPRESSION: Normal chest. Dictated by: Wilber Wood M.D. on 07/12/2024 at 11:29 Approved by: Wilber Wood M.D. on 07/12/2024 at 11:29
== END ==
PROVIDERS: Family Provider Registered Nurse; PCP Registered Nurse; Referring Provider Registered Nurse; Visit Provider Registered Nurse
DX: J18.9 Pneumonia, unspecified organism (principal)
CPT/HCPCS: 71046

== ENCOUNTER → 2024-08-16 13:55 | Outpatient (CLI) | payer MEDICARE, BC, SELFPAY ==
--- NOTE | 2024-08-16 13:58 | DI.RAD.S_ITS ---
PROCEDURE: XR CERVICAL SPINE 2V OR 3V INDICATIONS: Radiculopathy, site unspecified TECHNIQUE: 3 view(s) of the cervical spine were acquired. COMPARISON: None. FINDINGS: Bones: No fractures or dislocations to the T1 level. The lateral masses of C1 appear intact on the odontoid view. No suspicious bony lesions. There is mild straightening of normal cervical lordosis. Trace anterolisthesis of C7 on T1. Multilevel disc height loss with endplate sclerosis and spurring, moderate at C4-C5 and C5-C6 levels. Mild multilevel mid and lower cervical spine facet joint arthropathy and uncovertebral hypertrophy. Soft tissues: No prevertebral soft tissue swelling. IMPRESSION: No displaced fracture or traumatic subluxation. Grade 1 anterolisthesis of C7 on T1. Multilevel degenerative changes. Approved by: Mercy Shetty M.D.,Ph.D. on 08/17/2024 at 6:05
== END ==
PROVIDERS: Family Provider Registered Nurse; PCP Registered Nurse; Referring Provider Family Medicine; Visit Provider Family Medicine
DX: M43.13 Spondylolisthesis, cervicothoracic region (principal); M47.812 Spondylosis without myelopathy or radiculopathy, cervical region; M54.10 Radiculopathy, site unspecified
CPT/HCPCS: 72040

== ENCOUNTER → 2024-09-08 10:22 | Outpatient (CLI) | payer MEDICARE, BC, SELFPAY ==
--- NOTE | 2024-09-08 11:30 | DI.MRI.S_ITS ---
MR breast BI wo/w con: 09/08/2024. BI-RADS: 2 CLINICAL: 73-year old female for bilateral diagnostic breast MRI. Mammographically Dense breast tissue. Screening MRI. No personal or first-degree family history of breast cancer. PRIOR EXAMS: 03/20/2024, 03/09/2024, 02/18/2023, 02/09/2023, 10/14/2021, 06/29/2020, 01/12/2019, 04/11/2018, 03/17/2018, 02/10/2017, 02/20/2015. MRI TECHNIQUE: Bilateral breast MRI was performed on a 1.5 Jeannette magnet using a dedicated breast coil with mild compression. Axial T1 and T2 STIR sequences were obtained. Dynamic contrast enhanced VIBRANT fat-suppressed sequences were obtained. Delayed sagittal high resolution or sagittal reconstructed isotropic sequence was also obtained. Subtraction images and maximum intensity projection images were obtained. The study was evaluated using [employer] software. IV Contrast: 20 ml ProHance. FIBROGLANDULAR TISSUE Bilateral: C. Heterogeneous fibroglandular tissue. BACKGROUND PARENCHYMAL ENHANCEMENT Bilateral: Mild symmetrical background parenchymal enhancement. BREAST FINDINGS Right: Benign-appearing cyst or cysts and duct ectasia noted. There is no suspicious mass or non-mass enhancement. There are no abnormal axillary or internal mammary lymph nodes. Left: Benign-appearing duct ectasia noted. There is no suspicious mass or non-mass enhancement. There are no abnormal axillary or internal mammary lymph nodes. IMPRESSION: * No evidence of malignancy with benign findings. RECOMMENDATIONS Bilateral * If this patient has an elevated lifetime risk for breast cancer of over 20%, recommend consideration for annual screening breast MRI as an adjunct to screening mammography. * Annual screening mammography. COMMENTS: The imaging literature indicates that a negative contrast breast MRI examination has a high sensitivity and a moderate specificity for detecting and excluding invasive carcinomas to a detection threshold of 3-5 mm; nonetheless, appropriate clinical and mammographic follow-up are recommended. MRI is not sensitive for detecting DCIS (ductal carcinoma in situ) and may not detect large invasive neoplasms that show only minimal enhancement such as mucinous carcinoma. If there are suspicious calcifications or clinically worrisome palpable masses, then biopsy should still be considered. Invasive neoplasms can be hidden by co-existent and benign enhancement caused by mastitis, hormone therapy effects, radiation therapy, , and recent biopsy or surgery. False positive examinations can occur in a number of circumstances, including breasts that have recently been subject to invasive procedures and those that contain atypical ductal hyperplasia, hormonally stimulated glandular tissue, fat necrosis, or radial scars. OVERALL ASSESSMENT CATEGORY BI-RADS-2: Benign. ELECTRONICALLY SIGNED: Renetta Mendez M.D. on 09/08/2024 at 02:57:31 PM PT Interpreting Station ID: [id number]
== END ==
PROVIDERS: Family Provider Registered Nurse; PCP Registered Nurse; Referring Provider Registered Nurse; Visit Provider Registered Nurse
DX: R92.8 Other abnormal and inconclusive findings on diagnostic imaging of breast (principal); Z91.89 Other specified personal risk factors, not elsewhere classified; Z80.3 Family history of malignant neoplasm of breast; N60.01 Solitary cyst of right breast
CPT/HCPCS: 77049; A9579

== ENCOUNTER → 2024-10-09 14:53 | Outpatient (CLI) | payer MEDICARE, BC, SELFPAY ==
--- NOTE | 2024-10-09 14:55 | DI.RAD.S_ITS ---
PROCEDURE: XR CERVICAL SPINE 4V OR 5V INDICATIONS: Spinal stenosis, site unspecified TECHNIQUE: Five views of the cervical spine acquired. COMPARISON: [facility], CR, XR CERVICAL SPINE 2V OR 3V, 08/16/2024, 14:15. FINDINGS: Cervical spine curvature and alignment: Normal. Normal physiologic motion in flexion extension Bones: There are no osseous abnormalities. Disc spaces: Mild C3-4, moderate C4-5 and moderate C5-6 degenerative disc disease appreciated. There is mild degenerate facet disease C2-3 through C7-T1 Soft tissues: No soft tissue swelling, calcification or mass. IMPRESSION: Degeneration Dictated by: Wilber Wood M.D. on 10/10/2024 at 9:54 Approved by: Wilber Wood M.D. on 10/10/2024 at 9:55
== END ==
LOC: RAD 14:54
PROVIDERS: Family Provider Registered Nurse; PCP Registered Nurse; Referring Provider Registered Nurse; Visit Provider Registered Nurse
DX: M50.31 Other cervical disc degeneration, high cervical region (principal); M47.812 Spondylosis without myelopathy or radiculopathy, cervical region; M47.813 Spondylosis without myelopathy or radiculopathy, cervicothoracic region; M79.2 Neuralgia and neuritis, unspecified; M48.00 Spinal stenosis, site unspecified
CPT/HCPCS: 72050

== ENCOUNTER → 2025-04-06 11:25 | Outpatient (CLI) | payer MEDICARE, BC, SELFPAY ==
--- NOTE | 2025-04-06 11:29 | DI.MG.S_ITS ---
MM screening mammo BI: 04/06/2025. BI-RADS: 1 CLINICAL: 74-year old female for bilateral screening mammogram. Tyrer-Cuzick lifetime risk of 14.9%. Current reported family history of breast cancer: mother. PRIOR EXAMS 09/08/2024, 03/20/2024, 03/09/2024, 02/18/2023. MAMMOGRAPHY TECHNIQUE: 2D and 3D (tomosynthesis) digital mammographic views obtained, with additional images as needed for full coverage. Current study was also evaluated with a Computer Aided Detection (CAD) system. DENSITY D. The breasts are extremely dense, which lowers the sensitivity of mammography. MAMMOGRAPHY FINDINGS Bilateral: No suspicious mass, asymmetry, microcalcification, or other abnormality seen. IMPRESSION: * No evidence of malignancy. RECOMMENDATIONS Bilateral * Annual screening mammography. OVERALL ASSESSMENT CATEGORY BI-RADS-1: Negative. The [employer] recommends annual screening mammography beginning at age 40 for women with average risk of breast cancer. ELECTRONICALLY SIGNED: Renetta Mendez M.D. on 04/09/2025 at 12:29:09 PM PT Interpreting Station ID: [id number]
== END ==
LOC: MAMMO 11:28
PROVIDERS: Family Provider Registered Nurse; PCP Registered Nurse; Referring Provider Registered Nurse; Visit Provider Registered Nurse
DX: Z12.31 Encounter for screening mammogram for malignant neoplasm of breast (principal); R92.343 Mammographic extreme density, bilateral breasts; Z80.3 Family history of malignant neoplasm of breast
CPT/HCPCS: 77063; 77067